=== PATIENT | male | born 1965 | race African-American/Black ===

== ENCOUNTER 2017-04-30 16:15 | Emergency (ER) | payer OTHER ==
[2017-04-30] MEDS ORDERED: HYDROcodone/Acetaminophen 5/325 mg Tablet ONE (16:31)
[2017-04-30] MEDS ORDERED: cloNIDine HCl 0.1 MG TAB ONE ×2 (17:21→17:58)
--- NOTE | 2017-04-30 19:32 | CT ---
CT CERVICAL SPINE 04/30/2017 TECHNIQUE: A spiral CT of the cervical spine was done. Axial slices were acquired and then coronal and sagitta l reconstructions were obtained. FINDINGS: No fracture, dislocation, or acute bony change is seen. There is loss of the normal cervical lordos is, which is most likely due to spasm. The disk spaces are normal in height. The C1 to dens distan ce is normal, and the soft tissues are normal in thickness. Findings by level follow: C1-C2: No acute findings. C2-C3: There is a small, centrally protruding disk-osteophyte complex that does not appear to cause any significant impingement. There is no stenosis of concern. C3-C4: No acute findings. C4-C5: No acute findings. C5-C6: Mild right foraminal narrowing. No acute findings. There may be a minimal concentric bulge of this disk. C6-C7: Minimal concentric bulge of the disk. No stenosis seen. C7-T1: No acute findings. T1-T2: No acute findings. The lung apices show a few tiny blebs in the apex of the right upper lobe. There is no pneumothorax . The patient has a small retention cyst in the floor of the left maxillary sinus that measures about 1.4 cm in size. There is a nonspecific increase in the number of deep cervical nodes present bilate rally. The findings are fairly symmetric, however. IMPRESSION: 1. No acute traumatic findings except for loss of lordosis 2. Retention cyst, left maxillary sinus 3. Non-specific cervical adenopathy POS: HOME
== END 2017-04-30 18:40 | disposition home or self-care (01) ==
LOC: BURERS 16:15
DX: S13.4XXA Sprain of ligaments of cervical spine, initial encounter (principal); I10 Essential (primary) hypertension; F31.9 Bipolar disorder, unspecified; F41.9 Anxiety disorder, unspecified; F20.9 Schizophrenia, unspecified; F17.210 Nicotine dependence, cigarettes, uncomplicated; V89.2XXA Person injured in unspecified motor-vehicle accident, traffic, initial encounter
CPT/HCPCS: 72125

== ENCOUNTER 2018-01-24 20:52 | Emergency (ER) | payer OTHER ==
[2018-01-24 21:44] LABS: Bilirubin Negative (Negative); Blood, Urine Trace (Negative); Clarity Clear (Clear); Glucose, Urine (Dipstick) Negative (Negative); Leukocyte Negative (Negative); Nitrite Negative (Negative); Protein, Urine (Dipstick) Negative (Neg-Trace); Specific Gravity, Urine 1.015 (1.005-1.030); Urobilinogen 0.2 mg/dL (0.2-1.0); pH, Urine 7.5 (5.0-9.0)
[2018-01-24 21:59] LABS: Bacteria/HPF Rare-Few HPF (None Seen); Crystals/HPF 1+ AMORPH PHOS HPF (Negative); Squamous Epithelial 0-3 HPF (0-3); WBC/HPF 0-3 HPF (0-3)
[2018-01-24] MEDS ORDERED: Bisacodyl 10 MG SUPP ONE (22:11)
== END 2018-01-24 22:12 | disposition home or self-care (01) ==
LOC: BURERS 20:52
DX: K59.00 Constipation, unspecified (principal); R33.9 Retention of urine, unspecified; I10 Essential (primary) hypertension; F41.9 Anxiety disorder, unspecified; F31.9 Bipolar disorder, unspecified; F20.9 Schizophrenia, unspecified; F17.210 Nicotine dependence, cigarettes, uncomplicated
CPT/HCPCS: 51702; 51798; 81003; 81015; 87086

== ENCOUNTER 2018-01-27 14:37 | Emergency (ER) | payer OTHER ==
[2018-01-27 15:24] LABS: Bilirubin Negative (Negative); Blood, Urine Large (Negative); Clarity Cloudy (Clear); Glucose, Urine (Dipstick) Negative (Negative); Leukocyte Trace (Negative); Nitrite Negative (Negative); Protein, Urine (Dipstick) 30 mg/dL (Neg-Trace); Urobilinogen 0.2 mg/dL (0.2-1.0)
[2018-01-27 15:29] LABS: RBC/HPF GREATER THAN 50-TNTC HPF (0-3)
[2018-01-27 15:30] LABS: Bacteria/HPF Rare-Few HPF (None Seen); Squamous Epithelial 0-3 HPF (0-3); WBC/HPF 0-3 HPF (0-3)
== END 2018-01-27 15:20 | disposition home or self-care (01) ==
LOC: BURERS 14:37
DX: Z46.6 Encounter for fitting and adjustment of urinary device (principal); I10 Essential (primary) hypertension; F41.9 Anxiety disorder, unspecified; F31.9 Bipolar disorder, unspecified; F20.9 Schizophrenia, unspecified; F17.210 Nicotine dependence, cigarettes, uncomplicated
CPT/HCPCS: 81003; 81015; 87077; 87086; 87186; 99283

== ENCOUNTER 2018-03-22 07:53 | Outpatient (CLI) | payer OTHER ==
[2018-03-22 12:00] LABS: Bilirubin Negative (Negative); Blood, Urine Trace (Negative); Clarity CLEAR (Clear); Glucose, Urine (Dipstick) Negative (Negative); Leukocyte Negative (Negative); Nitrite Negative (Negative); Protein, Urine (Dipstick) Negative (Neg-Trace); pH, Urine 6.5 (5.0-9.0)
[2018-03-22 12:03] LABS: Specific Gravity, Urine Greater than 1.060 (1.002-1.036)
[2018-03-22 12:07] LABS: Bacteria/HPF None Seen HPF (None Seen); Hyaline Casts/LPF 0-3 HYALINE CAST LPF (0-3 Hyaline); RBC/HPF 0-3 HPF (0-3); Squamous Epithelial None Seen HPF (0-3); WBC/HPF 0-3 HPF (0-3)
--- NOTE | 2018-03-22 21:20 | CT ---
CT ABDOMEN AND PELVIS WITH AND WITHOUT CONTRAST WITH REGIONAL RECONSTRUCTIONS 03/22/[address] of the abdomen and pelvis was done for evaluation of microhematuria. Axial slices were init ially acquired without IV contrast, followed by venous phase and slightly delayed images. Coronal and sagittal reconstructions were subsequently done. The lung bases are clear. There is a mostly calcified 1.5 cm nodule in the left lower lobe medially t hat is almost certainly a partially calcified granuloma. The liver seems slightly generous in size, b ut internally shows no focal lesions or dilated ducts. The spleen is normal in size. The gallbladder contain no calcifications to suggest stones. The pancreas was unremarkable. A 1.2 cm low density left adrenal mass is present. Its imaging characteristics are virtually pathogno luisana of an adenoma. On the noncontrast images, it has negative CT numbers. On the venous images it e nhances slightly to 28 units average. Even by a washout six minutes later, the CT numbers were back i n the negative range again. All of these would fit very clearly with an adenoma. Regarding the kidneys themselves, no renal stones, masses, or obstruction was detected. Cortex seems ample around each kidney. The ureters are normal in caliber throughout. The delayed images show some dye in the urinary bladder with no obvious defects. The bowel is nondistended. There is no sign of obstruction or inflammatory change around bowel. No fr ee air or free fluid was seen. CT of the pelvis showed no pelvic masses, fluid collections, or inflammatory changes. The prostate me asured about 4 cm in transverse diameter. A minimal fat filled left inguinal hernia was noted. IMPRESSION: 1. No acute abdominal or pelvic findings. No changes to explain microhematuria. 2. 1.2 cm left adrenal mass with imaging characteristics highly consistent with a benign adenoma . POS: HOME
== END 2018-03-22 07:54 | disposition home or self-care (01) ==
LOC: BURCT 07:53
PROVIDERS: ATTEND Urology
DX: R31.29 Other microscopic hematuria (principal); R68.82 Decreased libido; E27.8 Other specified disorders of adrenal gland
CPT/HCPCS: 74170; 81001; 84153; 84403; 87086

== ENCOUNTER 2020-04-01 10:22 | Emergency (ER) | payer OTHER ==
[2020-04-01] MEDS ORDERED: Ketorolac Tromethamine 30 MG/ML VIAL ONE (10:42)
== END 2020-04-01 10:52 | disposition home or self-care (01) ==
LOC: BURERS 10:22
DX: M10.9 Gout, unspecified (principal); I10 Essential (primary) hypertension; F41.9 Anxiety disorder, unspecified; F31.9 Bipolar disorder, unspecified; F20.9 Schizophrenia, unspecified; F17.210 Nicotine dependence, cigarettes, uncomplicated; Z79.899 Other long term (current) drug therapy
CPT/HCPCS: 96372; 99283; J1885

== ENCOUNTER 2021-01-29 17:49 | Emergency (ER) | payer OTHER ==
[2021-01-29] MEDS ORDERED: predniSONE 20 MG TAB ONE (19:20)
== END 2021-01-29 19:23 | disposition home or self-care (01) ==
LOC: BURERS 17:49
DX: M10.9 Gout, unspecified (principal); I10 Essential (primary) hypertension; F17.210 Nicotine dependence, cigarettes, uncomplicated
CPT/HCPCS: 99283; J7512

== ENCOUNTER 2021-03-01 20:18 | Emergency (ER) | payer OTHER ==
[2021-03-01] MEDS ORDERED: predniSONE 20 MG TAB ONE (20:33)
== END 2021-03-01 20:45 | disposition home or self-care (01) ==
LOC: BURERS 20:18
DX: M10.9 Gout, unspecified (principal); I10 Essential (primary) hypertension; F17.210 Nicotine dependence, cigarettes, uncomplicated; Z79.899 Other long term (current) drug therapy
CPT/HCPCS: 99283; J7512

== ENCOUNTER 2021-05-19 09:28 | Emergency (ER) | payer OTHER ==
[2021-05-19 10:49] LABS: #Basophils 0.1 thou/uL (0.0-0.2); #Eosinphils 0.1 thou/uL (0.0-0.7); #Lymphocytes 2.9 thou/uL (1.20-3.40); #Monocytes 0.6 thou/uL (0.11-0.59); #Neutrophils 3.7 thou/uL (1.40-6.50); %Basophils 1.7 % (0.0-1.0); %Eosinophils 1.8 % (0.0-10.0); %Lymphocytes 39.2 % (21.0-51.0); %Monocytes 7.5 % (0.0-10.0); %Neutrophils 49.8 % (42.0-75.0); Mean Corpuscular HGB CONC 31.2 g/dL (32.0-36.0); Mean Corpuscular Hemoglobin 28.3 pg (27.0-31.0); Mean Corpuscular Volume 90.8 fL (78.0-98.0); Mean Platelet Volume 6.8 fL (7.4-10.4); Platelet Count 370 thou/uL (130-400); RBC Distribution Width 16.8 % (11.5-14.5); White Blood Cell (WBC) Count 7.4 thou/uL (4.8-10.8)
[2021-05-19 11:07] LABS: ALT (SGPT) 40 U/L (8-55); AST (SGOT) 38 U/L (5-34); Alkaline Phosphatase 89 U/L (40-110); Anion Gap 16 mmol/L (10-20); BUN (Urea Nitrogen) 10 mg/dL (8.4-25.7); Bilirubin, Total 0.3 mg/dL (0.2-1.2); Calc. Creatinine Clearance 0 mL/min (70-130); Calcium 9.1 mg/dL (7.8-10.44); Carbon Dioxide 26 mmol/L (22-29); Chloride 103 mmol/L (98-107); Globulin 3.3 g/dL (2.4-3.5); Glucose 110 mg/dL (70-105); Potassium 4.1 mmol/L (3.5-5.1); Protein, Total 7.3 g/dL (6.0-8.3); Sodium 141 mmol/L (136-145)
== END 2021-05-19 10:47 | disposition home or self-care (01) ==
LOC: BURERS 09:28
DX: J32.9 Chronic sinusitis, unspecified (principal); R07.2 Precordial pain; I10 Essential (primary) hypertension; M10.9 Gout, unspecified; F17.210 Nicotine dependence, cigarettes, uncomplicated; Z79.899 Other long term (current) drug therapy
CPT/HCPCS: 36415; 71045; 80053; 83880; 84484; 85025; 93005

== ENCOUNTER 2021-10-29 10:27 | Emergency (ER) | payer OTHER | END 2021-10-29 10:57 | disposition home or self-care (01) | LOC: BURERS 10:27 | DX: M10.9 Gout, unspecified (principal); I10 Essential (primary) hypertension; F17.210 Nicotine dependence, cigarettes, uncomplicated | CPT/HCPCS: 99283 ==

== ENCOUNTER 2022-01-21 11:13 | Emergency (ER) | payer OTHER ==
[2022-01-21] MEDS ORDERED: Dexamethasone 4 MG TAB ONE (12:31)
== END 2022-01-21 12:36 | disposition home or self-care (01) ==
LOC: BURERS 11:13
DX: M10.9 Gout, unspecified (principal)
CPT/HCPCS: 99283; J8540

== ENCOUNTER 2022-03-06 18:14 | Emergency (ER) | payer OTHER ==
[2022-03-06] MEDS ORDERED: predniSONE 20 MG TAB ONE (18:36)
[2022-03-06] MEDS ORDERED: Ketorolac Tromethamine 30 MG/ML VIAL ONE (18:36)
== END 2022-03-06 18:42 | disposition home or self-care (01) ==
LOC: BURERS 18:14
DX: M10.9 Gout, unspecified (principal); L25.9 Unspecified contact dermatitis, unspecified cause; I10 Essential (primary) hypertension; F17.210 Nicotine dependence, cigarettes, uncomplicated
CPT/HCPCS: 96372; 99283; J1885; J7512

== ENCOUNTER 2022-12-07 08:38 | Emergency (ER) | payer OTHER | END 2022-12-07 10:38 | disposition home or self-care (01) | LOC: BURERS 08:38 | DX: J20.9 Acute bronchitis, unspecified (principal); I10 Essential (primary) hypertension; F17.210 Nicotine dependence, cigarettes, uncomplicated; Z20.822 Contact with and (suspected) exposure to COVID-19 | CPT/HCPCS: 71045; 87081; 87430; 87804; U0003; U0005 ==